=== PATIENT | female | born 1955 | race Caucasian/White ===

== ENCOUNTER 2022-06-08 10:02 | Outpatient (CLI) | payer MEDICARE ==
[2022-06-08] MEDS ORDERED: Magnevist 469MG/ML 20 ML VIAL ONE (10:56)
== END 2022-06-08 10:03 | disposition home or self-care (01) ==
LOC: CSHMRI 10:02
PROVIDERS: ATTEND Internal Medicine Hematology & Oncology
DX: C50.812 Malignant neoplasm of overlapping sites of left female breast (principal); C79.51 Secondary malignant neoplasm of bone; C22.9 Malignant neoplasm of liver, not specified as primary or secondary; M16.9 Osteoarthritis of hip, unspecified
CPT/HCPCS: 74183

== ENCOUNTER 2022-09-14 13:55 | Outpatient (CLI) | payer MEDICARE ==
[~2022-09-14 13:55] MED LIST: Magnevist 469MG/ML 20 ML VIAL ONE
== END 2022-09-14 13:56 | disposition home or self-care (01) ==
LOC: CSHMRI 13:55
PROVIDERS: ATTEND Internal Medicine Hematology & Oncology
DX: C78.7 Secondary malignant neoplasm of liver and intrahepatic bile duct (principal); C50.919 Malignant neoplasm of unspecified site of unspecified female breast; C79.51 Secondary malignant neoplasm of bone
CPT/HCPCS: 74183

== ENCOUNTER 2023-08-28 08:51 | Outpatient (CLI) | payer MEDICARE ==
[2023-08-28] MEDS ORDERED: Magnevist 469MG/ML 20 ML VIAL ONE (12:27)
== END 2023-08-28 08:52 | disposition home or self-care (01) ==
LOC: CSHMRI 08:51
PROVIDERS: ATTEND Internal Medicine Hematology & Oncology
DX: C78.7 Secondary malignant neoplasm of liver and intrahepatic bile duct (principal); C50.919 Malignant neoplasm of unspecified site of unspecified female breast; N18.32 Chronic kidney disease, stage 3b
CPT/HCPCS: 74183; 82565; A9579

== ENCOUNTER 2024-06-26 12:48 | Outpatient (CLI) | payer MEDICARE ==
[2024-06-26 14:56] LABS: Hematocrit 34.9 % (34.9-44.5); Hemoglobin 11.4 g/dL (12.0-15.5); Mean Corpuscular HGB CONC 32.7 g/dL (32.0-36.0); Mean Corpuscular Volume 91.8 fL (81.6-98.3); Mean Platelet Volume 9.2 fL (7.4-10.4); Platelet Count 201 10x3/uL (150-450); RBC Distribution Width 14.4 % (11.5-14.5); White Blood Cell (WBC) Count 6.5 10x3/uL (3.5-10.5)
[2024-06-26 15:03] LABS: Chloride 106 mmol/L (98-107); Potassium 4.5 mmol/L (3.5-5.1); Sodium 138 mmol/L (136-145)
[2024-06-26 15:05] LABS: PTT 26.5 sec (22.0-33.0); Prothrombin Time 10.5 sec (9.5-12.1)
[2024-06-26 15:28] LABS: ALT (SGPT) 18 U/L (8-55); AST (SGOT) 26 U/L (5-34); Albumin 3.7 g/dL (3.4-4.8); Alkaline Phosphatase 101 U/L (40-110); Anion Gap 16 mmol/L (10-20); BUN (Urea Nitrogen) 24 mg/dL (9.8-20.1); Bilirubin, Direct 0.2 mg/dL (0.1-0.3); Bilirubin, Total 0.5 mg/dL (0.2-1.2); Calc. Creatinine Clearance 0 mL/min (70-130); Calcium 8.7 mg/dL (7.8-10.44); Carbon Dioxide 21 mmol/L (23-31); Estimated GFR 41; Glucose 78 mg/dL (80-115); Protein, Total 6.6 g/dL (5.8-8.1)
== END 2024-06-26 12:49 | disposition home or self-care (01) ==
LOC: CSHLAB 12:48
PROVIDERS: ATTEND Surgery
DX: Z01.818 Encounter for other preprocedural examination (principal)
CPT/HCPCS: 80048; 80076; 85027; 85610; 85730; 93005; 93010

== ENCOUNTER 2024-06-27 09:51 | Day surgery (SDC) | payer MEDICARE ==
[2024-06-26 13:41] VITALS: BMI 38.7
[2024-06-27] MEDS ORDERED: fentaNYL 50 mcg/mL 1 mL Vial ONE ×3 (11:38→14:09)
[2024-06-27] MEDS ORDERED: PROPOFOL 20 ML ONE (11:38)
[2024-06-27] MEDS ORDERED: CEFAZOLIN 2 GM VIAL ONE (12:41)
[2024-06-27] MEDS ORDERED: Bupivacaine HCl 0.5%/Epinephrine 1:200,000/PF 30 ml Vial ONE (12:41)
[2024-06-27] MEDS ORDERED: ePHEDrine Sulfate 50 MG/10 ML VIAL ONE (13:25)
[2024-06-27] MEDS ORDERED: Iopamidol 15 ML ONE (13:25)
[2024-06-27] MEDS ORDERED: Ondansetron PF 4 MG/2 ML Vial ONE (13:32)
== END 2024-06-27 15:15 | disposition home or self-care (01) ==
LOC: CSHSDC 09:51
PROVIDERS: ATTEND Surgery
PROC: 0JH63WZ Insertion of Totally Implantable Vascular Access Device into Chest Subcutaneous Tissue and Fascia, Percutaneous Approach (ICD-10-PCS; principal; 2024-06-27)
DX: C79.51 Secondary malignant neoplasm of bone (principal); E53.9 Vitamin B deficiency, unspecified; E55.9 Vitamin D deficiency, unspecified; E78.2 Mixed hyperlipidemia; E66.01 Morbid (severe) obesity due to excess calories; I10 Essential (primary) hypertension; I48.91 Unspecified atrial fibrillation; D64.9 Anemia, unspecified; E11.42 Type 2 diabetes mellitus with diabetic polyneuropathy; J45.909 Unspecified asthma, uncomplicated; M25.50 Pain in unspecified joint; Z79.84 Long term (current) use of oral hypoglycemic drugs; Z79.899 Other long term (current) drug therapy; Z68.38 Body mass index [BMI] 38.0-38.9, adult; Z79.01 Long term (current) use of anticoagulants
CPT/HCPCS: 36561; 71045; C1788; J1642; J2405; J2704; J3010; Q9967

== ENCOUNTER 2024-09-13 14:47 | Outpatient (CLI) | payer MEDICARE | END 2024-09-13 14:48 | disposition home or self-care (01) | LOC: CSHULT 14:47 | PROVIDERS: ATTEND Internal Medicine Hematology & Oncology | DX: C50.812 Malignant neoplasm of overlapping sites of left female breast (principal); C79.51 Secondary malignant neoplasm of bone; D63.1 Anemia in chronic kidney disease; N18.32 Chronic kidney disease, stage 3b; R97.8 Other abnormal tumor markers; I35.0 Nonrheumatic aortic (valve) stenosis; I70.0 Atherosclerosis of aorta | CPT/HCPCS: 93306 ==